=== PATIENT | female | born 1955 | race Caucasian/White ===

== ENCOUNTER 2020-04-20 06:14 | Emergency (ER) | payer MEDICARE, OTHER ==
[~2020-04-20] VITALS: Ht 172.7 cm; Wt 117.9 kg
[2020-04-20] MEDS ORDERED: ADVAIR (06:25)
[2020-04-20] MEDS ORDERED: LEVOTHYROXINE (06:26)
[2020-04-20] MEDS ORDERED: SINGULAIR (06:26)
[2020-04-20] MEDS ORDERED: DICLOFENAC (06:26)
[2020-04-20] MEDS ORDERED: HYDROQUINONE (06:27)
[2020-04-20 07:06] LABS: ABSOLUTE EOSINOPHILS 0.1 thou/uL (0.0-0.7); ABSOLUTE MONOCYTES 0.5 thou/uL (0.0-1.2); ABSOLUTE NEUTROPHILS 3.6 thou/uL (1.6-8.1); BASOPHILS 0.5 %; EOSINOPHILS 1.9 %; HEMATOCRIT 39.2 % (37.0-47.0); LYMPHOCYTES 19.2 %; MCH 32.7 pg (26.0-34.0); MCHC 33.2 g/dL (28.0-37.0); MCV 98.5 fL (80.0-100.0); MPV 8.9 fl. (7.2-11.1); NUCLEATED RBCS 0 /100WBC; PLATELET COUNT* 179 thou/uL (150-400); POLYS 69.4 %; RBC 3.99 mil/uL (4.20-5.00); RDW-CV 14.2 % (10.5-14.5); WBC 5.2 thou/uL (4.0-11.0)
[2020-04-20 07:26] LABS: CREATININE 0.7 mg/dL (0.6-1.3)
[2020-04-20 07:31] LABS: ALBUMIN 3.8 g/dL (3.4-5.0); TOTAL BILIRUBIN 0.6 mg/dL (<0.1-1.0); TOTAL PROTEIN 6.9 g/dL (6.4-8.2)
[2020-04-20 07:54] LABS: URINE BILIRUBIN NEGATIVE (Negative); URINE BLOOD NEGATIVE (Negative); URINE CLARITY CLEAR; URINE COLOR YELLOW; URINE GLUCOSE-RANDOM NEGATIVE (Negative); URINE KETONES NEGATIVE (Negative); URINE LEUKOCYTES-REFLEX 1+ (Negative); URINE NITRITE-REFLEX NEGATIVE (Negative); URINE PROTEIN NEGATIVE (Negative); URINE SPECIFIC GRAVITY >= 1.030 (1.005-1.030); URINE UROBILINOGEN 0.2 E.U./dl (0.2-1.0)
[2020-04-20 08:11] LABS: SQUAMOUS 0-3 Few /LPF (0-3); URINE RBC 0-2 Rare /HPF (0-2); URINE WBC-REFLEX 6-15 Few /HPF (0-5)
[2020-04-20 08:12] LABS: BACTERIA-REFLEX 1-9 Few /HPF (None Seen); CASTS None Seen /LPF (None Seen); CRYSTALS None Seen /LPF (None Seen); MUCUS >6 Heavy strn/LPF (None Seen)
[2020-04-20] MEDS ORDERED: NORCO 5-325 TA1 EAC2 PO (10:05)
[2020-04-20] MEDS ORDERED: FLEXERIL PO (10:05)
[2020-04-20 10:15] VITALS: BP 149/60
== END 2020-04-20 10:17 | disposition home or self-care (01) ==
LOC: M.ERS 06:14
PROVIDERS: Emergency Medicine; Family Medicine
DX: M79.651 Pain in right thigh (principal); M25.561 Pain in right knee; E03.9 Hypothyroidism, unspecified; J45.909 Unspecified asthma, uncomplicated; Z91.041 Radiographic dye allergy status

== ENCOUNTER → 2021-03-22 | Outpatient (CLI) | payer MEDICARE, OTHER ==
[2021-03-22] VITALS (9 sets, daily range): BP systolic 118–164; BP diastolic 49–80
[~2021-03-22] VITALS: Ht 170.2 cm; Wt 122.5 kg
[~2021-03-22] MED LIST: ADVAIR; ADVAIR 500-501 EACH INH; AMBIEN 10 MG TA10 MG PO; ASA81BEC PO; Ambien; DICLOFENAC; DICLOFENAC SODI75 MG PO; FLEXERIL PO; FLONASE 0.05%50 MCG NARES; HYDROQUINONE; IMITREX100 MG PO; IPRAT-ALBUT 0.5-3 ML NEB; LEVOTHYROXINE PO; LIPITOR 20 MG T20 M1 PO; NORCO 10-325 T1 EACH PO; NORCO 5-325 TA1 EAC2 PO; OMEPRAZOLE40 MG PO; PLAQUENIL200 MG PO; SINGULAIR; SINGULAIR 10 MG10 MG PO; SYNTHROID75 MC1 PO; TOPAMAX100 MG PO; VENTOLIN HFA 1818 GM INH
[2021-03-22 10:28] LABS: HEMATOCRIT 41.6 % (37.0-47.0); HEMOGLOBIN 13.6 gm/dL (12.0-15.0); MCH 32.1 pg (26.0-34.0); MCHC 32.8 g/dL (28.0-37.0); MCV 97.8 fL (80.0-100.0); RBC 4.25 mil/uL (4.20-5.00); RDW-CV 13.7 % (10.5-14.5); WBC 6.1 thou/uL (4.0-11.0)
[2021-03-22 10:39] LABS: ALBUMIN 3.9 g/dL (3.4-5.0); ALKALINE PHOSPHATASE 103 U/L (46-116); ANION GAP 10 mmol/L (7-16); BUN 20 mg/dL (7-18); CALCIUM 8.9 mg/dL (8.5-10.1); CHLORIDE 106 mmol/L (98-107); CHOLESTEROL 175 mg/dL (<200); CO2 26 mmol/L (21-32); CREATININE 0.9 mg/dL (0.6-1.3); GLUCOSE 85 mg/dL (70-99); HDL CHOLESTEROL 95 mg/dL (>40); LDL CHOLESTEROL 73 mg/dL (<100); POTASSIUM 3.5 mmol/L (3.5-5.1); SGOT 32 U/L (15-37); SGPT 41 U/L (30-65); SODIUM 142 mmol/L (136-145); TC:HDL 1.8 Ratio (Not establshd); TOTAL BILIRUBIN 0.5 mg/dL (<0.1-1.0); TOTAL PROTEIN 6.8 g/dL (6.4-8.2); TRIGLYCERIDE 38 mg/dL (<150); VLDL 8 mg/dL (<40)
[2021-03-22 10:40] LABS: SERUM ASSESSMENT Clear
[2021-03-22 10:47] LABS: APTT 27.4 Seconds (25.0-31.3); INR 0.9; PROTIME 9.7 Seconds (9.20-11.50)
--- NOTE | 2021-03-22 13:57 | EKG ---
[place] [address] ELECTROCARDIOGRAM REPORT Name: SEJALNATALY Bowling Room: [facility]#: [id number] Admission: 03/22/21 Attend Phys: Salazar Lopes, Discharge: Date of : 51 Date of Service: 03/22/21 1031 Report #: [id number] THIS REPORT FOR: //name// [facility] Test Date: 2021-03-22 Test Time: 10:31:11 Pat Name: NATALY POST Department: Room: Gender: Rn Mental Health: : 1955 Requested By: Salazar Lopes Order Number: [id number] Bryn MD: Mina Thornton Measurements Intervals [place] Rate: 69 P: 47 HI: 178 QRS: 3 QRSD: 91 T: 22 QT: 448 QTc: 480 Interpretive Statements Sinus rhythm Inferior infarct, old No previous ECG available for comparison Electronically Signed On 03-22-2021 13:57:23 CDT by Mina Thornton [email or web address] <ELECTRONICALLY SIGNED> By: Mina Thornton MD, [facility] 03/22/21 1357 D: [id number] 30 Mina Thornton MD, FACC /EPI
--- NOTE | 2021-03-22 16:54 | CARD ---
[address] [address] CARDIAC CATH REPORT Name: NATALY POST Room: [facility]#: [id number] Admission: 03/22/21 Attend Phys: Vadim Marlow MD Discharge: Date of : 51 Report #: [id number] THIS REPORT FOR: cc: Stanford Serrato Russell J. DO Liston, Michael J. MD [facility] ~ APPROVED REPORT Study performed: 03/22/2021 11:43:51 Patient Details Patient Status: Out-Patient Room #: The patient is a 65 year-old female Event Personnel Heike trentub, Bill Alcaraz monitor, Marshall GUERRERO, alexi hermosillo monitor, vadim marlow MD Procedures Performed left heart cath via right radial artery, closure device vasc band Indication Positive stress test, Chest pain Procedure Narrative The patient was brought electively to the Cardiac Catheterization Laboratory and was prepped and draped in a sterile manner. The right wrist was infiltrated with 2% Lidocaine subcutaneous anesthesia. IV conscious sedation was used throughout procedure with appropriate monitoring and was performed in the presence of a registered nurse who was an independent trained observer other than the physician performing the procedure. The right wrist accessed via ultrasound guidance. A 6FR slender glide sheath was inserted into the right radial artery. Coronary angiography was performed using coronary diagnostic catheters. The right coronary system was accessed and visualized with a Diagnostic JR4 6FR catheter. The left coronary system was accessed and visualized with a Diagnostic TIG 6FR catheter. The left ventricle was accessed and visualized with a Diagnostic pigtail 6FR catheter. Left ventricular/Aortic Valve gradient assessed via catheter pullback. Left ventriculogram was performed in [place] projection. The patient tolerated the procedure well and there were no complications associated with the procedure. There [place] [address] CARDIAC CATH REPORT Name: NATALY POST Room: [facility]#: [id number] Admission: 03/22/21 Attend Phys: Vadim Marlow MD Discharge: Date of : 51 Report #: [id number] Intraoperative Conscious Sedation Sedation start time: 1203 Case end Time: 1225 Fentanyl 75.0 mcg Versed 1.0 mg Fluoro Time: 5.6 minutes Dose: DAP 75643 cGycm2 1028 mGy Contrast Type and Amount: 150 ml visipaque Diagnostic Cath Left Main The left main coronary artery is normal and bifurcates into a left anterior descending and circumflex coronary artery. LAD The left anterior descending coronary artery has minimal 10% plaquing in its midportion. Diagonal 1 A moderate-sized first diagonal branch is normal. Diagonal 2 A moderate-sized second diagonal branch is normal. Circumflex The circumflex coronary artery has mild 30% plaquing proximally. The remainder the vessel is free of significant disease. OM1 The first obtuse marginal is a large branch vessel that is normal. OM2 A moderate size second obtuse marginal branch is normal. Right Coronary The right coronary artery is 10% narrowed in the mid and distal vessel. R PDA The right PDA is 20% narrowed in its midportion. Left Ventriculography The left ventricle is normal in size with normal contractility. The left ventricular ejection fraction is estimated to be 60-65%. Hemodynamics The aortic pressure is 112/59 mmHg with a mean of 51 mmHg. The left ventricular pressure is 125/10 mmHg with a mean of mmHg. The left ventricular end diastolic pressure is 17 mmHg. Conclusion 1. Coronary artery disease as manifest by nonocclusive disease as outlined above. 2. Normal left ventricular systolic function. 3. Minimally elevated left ventricular end-diastolic pressure consistent with mild [place] [address] CARDIAC CATH REPORT Name: NATALY POST Room: [facility]#: [id number] Admission: 03/22/21 Attend Phys: Vadim Marlow MD Discharge: Date of : 51 Report #: [id number] Recommendations 1. Continue medical management and aggressive risk factor modification. <ELECTRONICALLY SIGNED> By: Vadim Marlow MD, [facility] 03/22/21 1654 1654 [id number]als[facility]yler Marlow MD, FACC /INF
== END | disposition home or self-care (01) ==
LOC: M.CL 09:15
PROVIDERS: ATTEND Internal Medicine Cardiovascular Disease
DX: R07.9 Chest pain, unspecified (principal); R94.39 Abnormal result of other cardiovascular function study; I25.10 Atherosclerotic heart disease of native coronary artery without angina pectoris; E03.9 Hypothyroidism, unspecified; J45.909 Unspecified asthma, uncomplicated; Z98.890 Other specified postprocedural states; Z79.899 Other long term (current) drug therapy; Z20.822 Contact with and (suspected) exposure to COVID-19; Z87.891 Personal history of nicotine dependence; Z91.041 Radiographic dye allergy status